=== PATIENT | female | born 1990 | race Caucasian/White ===

== ENCOUNTER → 2023-04-22 08:42 | Outpatient (BNVA) | payer BC, MEDICAID, SELFPAY | PROVIDERS: Family Provider Nurse Practitioner Family; PCP Nurse Practitioner; Visit Provider Nurse Practitioner Family | DX: R05.9 Cough, unspecified (principal); J10.1 Influenza due to other identified influenza virus with other respiratory manifestations | CPT/HCPCS: 87400; 87426 ==

== ENCOUNTER → 2023-05-31 12:13 | Outpatient (BNVA) | payer BC, MEDICAID, SELFPAY | PROVIDERS: Family Provider Nurse Practitioner Family; PCP Nurse Practitioner Family; Visit Provider Nurse Practitioner Family | DX: R30.9 Painful micturition, unspecified (principal) | CPT/HCPCS: 81003; 87086 ==

== ENCOUNTER → 2023-06-06 08:19 | Outpatient (BNVA) | payer BC, MEDICAID, SELFPAY | PROVIDERS: Family Provider Nurse Practitioner Family; PCP Nurse Practitioner Family; Visit Provider Nurse Practitioner Family | DX: R10.9 Unspecified abdominal pain (principal); R19.7 Diarrhea, unspecified; Z01.89 Encounter for other specified special examinations; Z13.6 Encounter for screening for cardiovascular disorders; Z79.899 Other long term (current) drug therapy; B34.9 Viral infection, unspecified; R10.2 Pelvic and perineal pain | CPT/HCPCS: 80053; 80061; 81003; 83036; 84439; 84443; 84481; 85025; 87177; 87209; 87328; 87329 ==

== ENCOUNTER → 2023-12-31 10:51 | Outpatient (BNVA) | payer BC, MEDICAID, SELFPAY | PROVIDERS: Family Provider Nurse Practitioner Family; PCP Nurse Practitioner Family; Visit Provider Nurse Practitioner Family | DX: J02.9 Acute pharyngitis, unspecified (principal); R50.9 Fever, unspecified; R68.89 Other general symptoms and signs | CPT/HCPCS: 87071; 87880 ==

== ENCOUNTER → 2024-04-20 11:06 | Outpatient (BNVA) | payer OTHER, BC, MEDICAID, SELFPAY | PROVIDERS: Family Provider Nurse Practitioner Family; PCP Nurse Practitioner Family; Visit Provider Nurse Practitioner Family | DX: S62.502A Fracture of unspecified phalanx of left thumb, initial encounter for closed fracture (principal); S60.222A Contusion of left hand, initial encounter; X58.XXXA Exposure to other specified factors, initial encounter | CPT/HCPCS: 73130 ==

== ENCOUNTER → 2024-04-28 15:40 | Outpatient (BNVA) | payer BC, MEDICAID, SELFPAY | PROVIDERS: Family Provider Nurse Practitioner Family; PCP Nurse Practitioner Family; Visit Provider Nurse Practitioner Family | DX: S50.01XA Contusion of right elbow, initial encounter (principal); X58.XXXA Exposure to other specified factors, initial encounter | CPT/HCPCS: 73080 ==

== ENCOUNTER 2024-04-29 07:47 | Outpatient (CLI) | payer BC, MEDICAID, OTHER, SELFPAY ==
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
== END 2024-04-29 07:48 | disposition home or self-care (01) ==
LOC: RAD 07:48
PROVIDERS: Family Provider Nurse Practitioner Family; PCP Nurse Practitioner Family; Visit Provider Nurse Practitioner Family
DX: S60.222A Contusion of left hand, initial encounter (principal); S62.502A Fracture of unspecified phalanx of left thumb, initial encounter for closed fracture; S62.102A Fracture of unspecified carpal bone, left wrist, initial encounter for closed fracture; V89.2XXA Person injured in unspecified motor-vehicle accident, traffic, initial encounter; R93.6 Abnormal findings on diagnostic imaging of limbs; S53.32XA Traumatic rupture of left ulnar collateral ligament, initial encounter
CPT/HCPCS: 73218

== ENCOUNTER → 2024-08-10 11:13 | Outpatient (BNVA) | payer BC, MEDICAID, SELFPAY | PROVIDERS: Family Provider Nurse Practitioner Family; PCP Nurse Practitioner Family; Visit Provider Nurse Practitioner Family | DX: N20.0 Calculus of kidney (principal); Z90.49 Acquired absence of other specified parts of digestive tract; Z98.890 Other specified postprocedural states; R93.89 Abnormal findings on diagnostic imaging of other specified body structures | CPT/HCPCS: 74018 ==

== ENCOUNTER 2024-08-10 16:35 | Emergency (ER) | payer BC, MEDICAID, SELFPAY ==
[2024-08-10 16:40] VITALS: BP 104/65; PULSE 88; TEMP 36.9; O2SAT 97
[2024-08-10 17:28] LABS: Basophils % 0.3 %; Eosinophils # 0.1 10^3/uL (0.0-0.8); Eosinophils % 0.6 %; Hematocrit 43.3 % (36-47); Lymphocytes # 2.8 10^3/uL (0.8-4.8); Lymphocytes % 32.5 %; Mean Corpuscular HGB Conc 31.9 g/dL (30-55); Mean Corpuscular Hemoglobin 27.5 pg (27-33); Mean Corpuscular Volume 86.3 fl (85-98); Mean Platelet Volume 11.2 fL (7.4-10.4); Monocytes # 0.6 10^3/uL (0.2-0.9); Monocytes % 7.3 %; Neutrophils # 5.08 10^3/uL (1.8-7.7); Nucleated Red Blood Cells % 0 %; Platelet Count 206 10^3/cmm (157-399); Red Blood Count 5.02 10^6/uL (3.85-5.65); Red Cell Distribution Width 14.1 % (12.1-15.1); White Blood Count 8.62 10^3/uL (3.29-11.43)
[2024-08-10 17:47] LABS: Alanine Aminotransferase 19 U/L (0-33); Albumin Level 4.3 g/dL (3.5-5.2); Alkaline Phosphatase 88 U/L (35-105); Anion Gap 16.8 (5-19); Aspartate Amino Transferase 21 U/L (0-32); Blood Urea Nitrogen 12 mg/dL (6-20); Calcium 9.5 mg/dL (8.5-10.5); Carbon Dioxide 26 mmol/L (22-29); Chloride 103 mmol/L (98-107); Creatinine Clr Calc Pharmacy 85.1869; Globulin 2.9 g/dL (1.3-4.6); Glomerular Filtration Rate 71.3 mL/min (90-130); Glucose 91 mg/dL (65-115); Lipase 44 U/L (13-60); Osmolality Calculated 293 mOsm/kg (285-295); Potassium 3.8 mmol/L (3.5-5.1); Sodium 142 mmol/L (136-145); Total Bilirubin 0.3 mg/dL (0.15-1.2); Total Protein 7.2 g/dL (6.6-8.7)
[2024-08-10 17:50] LABS: HCG, Serum Qual Negative (Negative)
--- NOTE | 2024-08-10 17:51 | CTR_ITS ---
PROCEDURE INFORMATION: Exam: CT Abdomen And Pelvis With Contrast Exam date and time: 08/10/2024 6:05 PM Age: 34 years old Clinical indication: Abdominal pain; Localized; Left lower quadrant (llq); Prior surgery; Surgery date: 6+ months; Surgery type: Partial hyst gb; Additional info: Scar TECHNIQUE: Imaging protocol: Computed tomography of the abdomen and pelvis with contrast. Radiation optimization: All CT scans at this facility use at least one of these dose optimization techniques: automated exposure control; mA and/or kV adjustment per patient size (includes targeted exams where dose is matched to clinical indication); or iterative reconstruction. Contrast material: OMNI 350; Contrast volume: 100 ml; Contrast route: INTRAVENOUS (IV); COMPARISON: CR XR KUB [id number] 08/10/2024 11:18 AM RADIATION DOSE METRICS: Total DLP (mGy-cm): 521.23 FINDINGS: Lungs: The lung bases are clear. No effusion Liver: Normal. No mass. Gallbladder and biliary ducts: There has been a cholecystectomy. Pancreas: Normal. No ductal dilation. Spleen: Normal. No splenomegaly. Adrenal glands: Normal. No mass. Kidneys and ureters: Normal. No hydronephrosis. Stomach and bowel: Unremarkable. No obstruction. No mucosal thickening. Appendix: No evidence of appendicitis. Intraperitoneal space: Unremarkable. No free air. No significant fluid collection. Vasculature: Unremarkable. No abdominal aortic aneurysm. Lymph nodes: Unremarkable. No enlarged lymph nodes. Urinary bladder: Unremarkable as visualized. Reproductive: There has been a hysterectomy. There is a cystic structure in the right adnexa with crenulated wall enhancement, consistent with a corpus luteum. Bones/joints: Unremarkable. No acute fracture. Soft tissues: Unremarkable. CT/CT abdomen pelvis w con* [id number] IMPRESSION: No cause for acute pain is identified.
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
[2024-08-10] MEDS: ondansetron 2 mg/ML SDV 2 mL 4 MG IVP (17:58)
[2024-08-10 17:59] VITALS: RESP 16
[2024-08-10] MEDS: morphine 4 mg/mL SDV 1 mL IVP (17:59)
[2024-08-10] MEDS: iohexol 350 mg/mL 500 mL Btl (per mL) IV (18:08)
[2024-08-10 18:16] VITALS: BP 107/54; RESP 16; O2SAT 98
[2024-08-10 18:40] LABS: Bilirubin Urine Negative (Negative); Blood Urine Negative (Negative); Glucose Urine UA Negative (Normal); Ketones Urine Negative (Negative); Leukocyte Esterase Urine Negative (Negative); Nitrate Urine Negative (Negative); Protein Urine Negative (Negative); Specific Gravity, Urine 1.015 (1.005-1.030); Urine Appearance Turbid (CLEAR); Urine Color Yellow (Yellow)
[2024-08-10 18:45] LABS: Add Urine Microscopic? YES; Bacteria Urine None Seen /hpf; Hyaline Casts Urine 0-4 /lpf; RBC Urine 0-2 /hpf (0-2); Squamous Epithelial Cell Urine 0-5 /hpf (0-5); WBC Urine 0-5 /hpf (0-5)
[2024-08-10 19:33] VITALS: BP 102/66; PULSE 79; O2SAT 100
== END 2024-08-10 19:34 | disposition home or self-care (01) ==
PROVIDERS: Emergency Provider Emergency Medicine; PCP Nurse Practitioner Family
DX: R10.9 Unspecified abdominal pain (principal)
CPT/HCPCS: 36415; 74177; 80053; 81001; 81003; 83690; 84703; 85025; 96374; 96375; 99285; J2270; J2405

== ENCOUNTER → 2024-08-12 10:29 | Outpatient (BNVA) | payer BC, MEDICAID, SELFPAY | PROVIDERS: PCP Nurse Practitioner Family; Visit Provider Nurse Practitioner Family | DX: R10.9 Unspecified abdominal pain (principal) | CPT/HCPCS: 82784; 83516; 86021; 86036; 86671 ==

== ENCOUNTER → 2024-08-13 10:48 | Outpatient (BNVA) | payer BC, MEDICAID, SELFPAY | PROVIDERS: PCP Nurse Practitioner Family; Visit Provider Nurse Practitioner Family | DX: R10.9 Unspecified abdominal pain (principal) | CPT/HCPCS: G0328 ==

== ENCOUNTER → 2024-08-19 11:47 | Outpatient (BNVA) | payer BC, MEDICAID, SELFPAY | PROVIDERS: PCP Nurse Practitioner Family; Visit Provider Nurse Practitioner Family | DX: R10.2 Pelvic and perineal pain (principal) | CPT/HCPCS: 82784; 83516; 86021; 86036; 86671 ==

== ENCOUNTER 2024-08-21 16:28 | Outpatient (CLI) | payer BC, MEDICAID, SELFPAY ==
--- NOTE | 2024-08-21 17:00 | US_ITS ---
WS: [id number] transvaginal [id number] HISTORY: R10.9 - Unspecified abdominal pain COMPARISON: None available. Status post hysterectomy. No midline mass identified. No mass at the vaginal cuff. No free fluid. Neither ovary is identified. No adnexal masses. US/ transvaginal [id number] IMPRESSION: Status post hysterectomy. No pelvic mass identified or fluid.
== END 2024-08-21 16:29 | disposition home or self-care (01) ==
PROVIDERS: PCP Nurse Practitioner Family; Visit Provider Nurse Practitioner Family
DX: R10.9 Unspecified abdominal pain (principal); R10.2 Pelvic and perineal pain; Z90.710 Acquired absence of both cervix and uterus
CPT/HCPCS: 76830

== ENCOUNTER → 2024-09-01 08:42 | Outpatient (BNVA) | payer BC, MEDICAID, SELFPAY | PROVIDERS: PCP Nurse Practitioner Family; Visit Provider Nurse Practitioner Family | DX: R89.9 Unspecified abnormal finding in specimens from other organs, systems and tissues (principal); R10.9 Unspecified abdominal pain | CPT/HCPCS: 82607; 82728; 82746; 83550; 83630; 83993; 87177; 87209; 87328; 87329; 87493 ==

== ENCOUNTER → 2024-09-07 13:36 | Outpatient (BNVA) | payer BC, MEDICAID, SELFPAY | PROVIDERS: PCP Nurse Practitioner Family; Visit Provider Nurse Practitioner Family | DX: R10.9 Unspecified abdominal pain (principal) | CPT/HCPCS: 86038 ==

== ENCOUNTER 2024-09-13 20:26 | Emergency (ER) | payer BC, MEDICAID, SELFPAY ==
[2024-09-13 20:47] VITALS: BP 100/62; PULSE 74; RESP 16; TEMP 36.8; O2SAT 99; BMI 29.2
[2024-09-13 21:40] VITALS: BP 106/69; PULSE 70; RESP 16; O2SAT 98
--- NOTE | 2024-09-13 21:44 | CTR_ITS ---
PROCEDURE INFORMATION: Exam: CT Head Without Contrast Exam date and time: 09/13/2024 10:14 PM Age: 34 years old Clinical indication: Pain; Syncope and collapse; Headache; Syncopal episode. C/O MAZA. ; Additional info: Headache, sycope TECHNIQUE: Imaging protocol: Computed tomography of the head without contrast. Radiation optimization: All CT scans at this facility use at least one of these dose optimization techniques: automated exposure control; mA and/or kV adjustment per patient size (includes targeted exams where dose is matched to clinical indication); or iterative reconstruction. COMPARISON: No relevant prior studies available. RADIATION DOSE METRICS: Total DLP (mGy-cm): 988.09 FINDINGS: Brain: There is no acute intracranial hemorrhage or abnormal extra-axial fluid collection identified. There is no intracranial mass effect or shift of midline structures. The sharma-white differentiation is preserved throughout. There is no sulcal effacement. The basilar cisterns are open. Cerebral ventricles: No hydrocephalus or ventricular effacement. Paranasal sinuses: Visualized sinuses are unremarkable. No fluid levels. Mastoid air cells: Visualized mastoid air cells are well aerated. Bones: No calvarial fracture or destructive osseous lesions are seen. Soft tissues: Unremarkable. CT/CT head wo con* [id number] IMPRESSION: No acute intracranial pathology identified by CT.
--- NOTE | 2024-09-13 21:45 | ECG_ITS ---
[facility] Test Date: 2024-09-13 Pat Name: Abril Mancia Department: Room: Gender: Female Estate Planning Director: : 1990 Requested By: Jerry Salgado Order Number: [id number] Morillo MD: Axel Mendez M.D. Measurements Intervals Lancing Rate: 80 P: 60 MT: 144 QRS: 50 QRSD: 79 T: 37 QT: 406 QTc: 468 Interpretive Statements SINUS RHYTHM WITH SINUS ARRHYTHMIA No previous ECG available for comparison Electronically Signed On 09-15-2024 17:29:22 CDT by Axel Mendez M.D. [email or web address]
[2024-09-13] MEDS: morphine 4 mg/mL SDV 1 mL IVP (21:51)
[2024-09-13] MEDS: sodium chloride 0.9% 1,000 ML 999 ML IV (21:51)
[2024-09-13 21:53] LABS: Basophils % 0.2 %; Eosinophils # 0.1 10^3/uL (0.0-0.8); Eosinophils % 0.5 %; Lymphocytes # 2.8 10^3/uL (0.8-4.8); Lymphocytes % 29.7 %; Mean Corpuscular HGB Conc 32.4 g/dL (30-55); Mean Corpuscular Hemoglobin 27.7 pg (27-33); Mean Corpuscular Volume 85.6 fl (85-98); Mean Platelet Volume 10.8 fL (7.4-10.4); Monocytes # 0.7 10^3/uL (0.2-0.9); Monocytes % 7.6 %; Neutrophils # 5.78 10^3/uL (1.8-7.7); Neutrophils % 61.9 %; Nucleated Red Blood Cells % 0 %; Platelet Count 177 10^3/cmm (157-399); Red Blood Count 4.44 10^6/uL (3.85-5.65); Red Cell Distribution Width 13.7 % (12.1-15.1); White Blood Count 9.35 10^3/uL (3.29-11.43)
[2024-09-13] MEDS: metoclopramide 5 mg/mL SDV 2 mL 10 MG IVP (21:54)
[2024-09-13] MEDS: dexamethasone 10 mg/mL INJ IVP (21:55)
[2024-09-13] MEDS: ketorolac 30 mg/mL INJ IVP (21:57)
[2024-09-13 22:02] VITALS: BP 98/69; PULSE 67; RESP 16; O2SAT 99
[2024-09-13 22:17] LABS: Alanine Aminotransferase 18 U/L (0-33); Albumin Level 4.1 g/dL (3.5-5.2); Alkaline Phosphatase 91 U/L (35-105); Anion Gap 14.9 (5-19); Aspartate Amino Transferase 19 U/L (0-32); Blood Urea Nitrogen 13 mg/dL (6-20); Calcium 9.1 mg/dL (8.5-10.5); Carbon Dioxide 25 mmol/L (22-29); Chloride 102 mmol/L (98-107); Creatine Phosphokinase 82 U/L (26-192); Creatinine Clr Calc Pharmacy 87.6859; Globulin 2.8 g/dL (1.3-4.6); Glomerular Filtration Rate 71.3 mL/min (90-130); Glucose 97 mg/dL (65-115); Magnesium 2.1 mg/dL (1.7-2.3); Osmolality Calculated 286 mOsm/kg (285-295); Potassium 3.9 mmol/L (3.5-5.1); Sodium 138 mmol/L (136-145); Total Bilirubin 0.3 mg/dL (0.15-1.2); Total Protein 6.9 g/dL (6.6-8.7)
[2024-09-13 22:21] LABS: Bilirubin Urine Negative (Negative); Blood Urine Negative (Negative); Glucose Urine UA Negative (Normal); Ketones Urine Trace (Negative); Leukocyte Esterase Urine Negative (Negative); Nitrate Urine Negative (Negative); Protein Urine Negative (Negative); Specific Gravity, Urine 1.019 (1.005-1.030); Urine Appearance Clear (CLEAR); Urine Color Yellow (Yellow); pH Urine 6.5 (5-7)
[2024-09-13 22:26] LABS: Add Urine Microscopic? YES; Bacteria Urine None Seen /hpf; Hyaline Casts Urine 0-4 /lpf; RBC Urine 0-2 /hpf (0-2); Squamous Epithelial Cell Urine 0-5 /hpf (0-5); WBC Urine 0-5 /hpf (0-5)
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
[2024-09-13 22:43] VITALS: BP 94/60; PULSE 50; RESP 16; O2SAT 94
[2024-09-13 22:54] VITALS: BP 94/60; PULSE 52; RESP 16; O2SAT 99
== END 2024-09-13 22:59 | disposition home or self-care (01) ==
PROVIDERS: Emergency Provider Emergency Medicine; PCP Nurse Practitioner Family
DX: G43.809 Other migraine, not intractable, without status migrainosus (principal)
CPT/HCPCS: 36415; 70450; 80053; 81001; 82550; 83735; 85025; 93005; 96361; 96374; 96375; 99285; J1100; J1885; J2270; J2765; J7030

== ENCOUNTER → 2024-09-17 09:22 | Outpatient (BNVA) | payer BC, MEDICAID, SELFPAY | PROVIDERS: PCP Nurse Practitioner Family; Visit Provider Nurse Practitioner Family | DX: R11.0 Nausea (principal) | CPT/HCPCS: 80053; 82150; 82274; 82784; 83516; 83630; 83690; 84439; 84443; 85025; 85610; 85651; 87045; 87177; 87209; 87427; 87449; 87493 ==

== ENCOUNTER → 2024-10-21 15:31 | Outpatient (BNVA) | payer BC, MEDICAID, SELFPAY | PROVIDERS: PCP Nurse Practitioner Family; Visit Provider Nurse Practitioner Family | DX: R19.7 Diarrhea, unspecified (principal) | CPT/HCPCS: 80053; 82150; 82784; 83516; 83690; 84439; 84443; 85025; 85610; 85651; 86003; 86008; 86140 ==

== ENCOUNTER → 2024-11-12 14:24 | Outpatient (BNVA) | payer BC, MEDICAID, SELFPAY | PROVIDERS: PCP Nurse Practitioner Family; Visit Provider Nurse Practitioner Family | DX: R79.89 Other specified abnormal findings of blood chemistry (principal) | CPT/HCPCS: 80053; 81003; 82570; 84156 ==

== ENCOUNTER → 2024-12-15 08:21 | Outpatient (BNVA) | payer BC, MEDICAID, SELFPAY | PROVIDERS: PCP Nurse Practitioner Family; Visit Provider Nurse Practitioner Family | DX: Z91.018 Allergy to other foods (principal); J30.2 Other seasonal allergic rhinitis; J30.89 Other allergic rhinitis | CPT/HCPCS: 82785; 86001; 86003 ==

== ENCOUNTER 2025-02-01 09:15 | Outpatient (CLI) | payer BC, MEDICAID, SELFPAY ==
--- NOTE | 2025-02-01 09:20 | US_ITS ---
WS: [id number] DI[facility]NOSTIC BILATERAL DIGITAL BREAST TOMOSYNTHESIS MAMMOGRAPHY WITH CAD RIGHT breast ultrasound, limited. HISTORY: N64.4 - Mastodynia COMPARISON: None available. TECHNIQUE: Bilateral craniocaudad, mediolateral oblique, and mediolateral views are submitted with tomosynthesis and SM. Spot compression RIGHT MLO. Computer aided detection utilized. Breast composition: The breasts are extremely dense, which lowers the sensitivity of mammography. Marker is placed in the RIGHT axilla at the area of the palpable abnormality. There is no underlying mass identified. There are few small lymph nodes deep against the chest wall. Breasts are dense with scattered asymmetries. Additional spot compression views of the asymmetry in the medial LEFT breast performed. There is no persistent abnormality. No suspicious grouping of calcifications. RIGHT breast ultrasound, limited. Ultrasound to the RIGHT axilla in the area of pain. No abnormality identified. US/US breast RT limited* [id number] IMPRESSION: BI-RADS: 2 - Benign FOLLOW UP: 1 Year Follow-up
--- NOTE | 2025-02-01 10:00 | MM_ITS ---
WS: [id number] DIAGNOSTIC BILATERAL DIGITAL BREAST TOMOSYNTHESIS MAMMOGRAPHY WITH CAD RIGHT breast ultrasound, limited. HISTORY: N64.4 - Mastodynia COMPARISON: None available. TECHNIQUE: Bilateral craniocaudad, mediolateral oblique, and mediolateral views are submitted with tomosynthesis and SM. Spot compression RIGHT MLO. Computer aided detection utilized. Breast composition: The breasts are extremely dense, which lowers the sensitivity of mammography. Marker is placed in the RIGHT axilla at the area of the palpable abnormality. There is no underlying mass identified. There are few small lymph nodes deep against the chest wall. Breasts are dense with scattered asymmetries. Additional spot compression views of the asymmetry in the medial LEFT breast performed. There is no persistent abnormality. No suspicious grouping of calcifications. RIGHT breast ultrasound, limited. Ultrasound to the RIGHT axilla in the area of pain. No abnormality identified. MM/MM diag BI tomosynthesis [id number] IMPRESSION: BI-RADS: 2 - Benign FOLLOW UP: 1 Year Follow-up
== END 2025-02-01 09:16 | disposition home or self-care (01) ==
LOC: RAD 09:16
PROVIDERS: PCP Nurse Practitioner Family; Visit Provider Nurse Practitioner Family
DX: N64.4 Mastodynia (principal); N63.31 Unspecified lump in axillary tail of the right breast; R59.0 Localized enlarged lymph nodes; N64.89 Other specified disorders of breast
CPT/HCPCS: 76642; 77062; G0279